=== PATIENT | female | born 1935 | race Caucasian/White ===

== ENCOUNTER 2020-11-10 15:40 | Emergency (ER) | payer OTHER ==
[2020-11-10 17:18] VITALS: BMI 35.2
[2020-11-11 03:18] VITALS: BP 139/66; PULSE 66; TEMP 97.7
== END 2020-11-11 04:04 | disposition home or self-care (01) ==
LOC: JER 15:40
PROC: 0HQKXZZ Repair Right Lower Leg Skin, External Approach (ICD-10-PCS; principal; 2020-11-10)
DX: S81.811A Laceration without foreign body, right lower leg, initial encounter (principal); W01.198A Fall on same level from slipping, tripping and stumbling with subsequent striking against other object, initial encounter
CPT/HCPCS: 70450-TC; 72125-TC; 73560-TC-LT-FY; 93005; 93010; 99285-25